=== PATIENT | female | born 1965 | race Caucasian/White ===

== ENCOUNTER 2021-02-15 12:52 | Observation (INO) | payer BC, OTHER ==
[~2021-02-15] VITALS: Ht 165.1 cm; Wt 101.2 kg
[2021-02-15 13:28] LABS: HEMOGLOBIN 14.8 gm/dl (12.3-15.3); RED BLOOD COUNT 4.91 M/UL (4.00-5.10); WHITE BLOOD COUNT 8.8 K/UL (4.5-11.0)
[2021-02-15 14:05] LABS: BUN/CREATININE RATIO 22 (0-10)
[2021-02-15] MEDS ORDERED: OZEMPIC1 MG/0.71 SC (17:08)
[2021-02-15] MEDS ORDERED: PRAVASTATIN SOD40 MG PO (17:09)
[2021-02-15] MEDS ORDERED: GLUCOPHAGE1000 MG PO (17:10)
[2021-02-15] MEDS ORDERED: MOBIC15 MG PO (17:10)
[2021-02-15] MEDS ORDERED: BENICAR HCT 401 EACH PO (17:10)
[2021-02-15] MEDS ORDERED: NORVASC5 MG PO (17:10)
[2021-02-15] MEDS ORDERED: CYMBALTA60 MG PO (17:11)
[2021-02-16 02:58] LABS: HEMOGLOBIN 13.1 gm/dl (12.3-15.3); RED BLOOD COUNT 4.47 M/UL (4.00-5.10); WHITE BLOOD COUNT 7.1 K/UL (4.5-11.0)
[2021-02-16 03:41] LABS: BUN/CREATININE RATIO 20 (0-10)
[2021-02-16] MEDS ORDERED: HYDRALAZINE HCL25 MG PO (13:34)
[2021-02-16] MEDS ORDERED: AMLODIPINE BESYL5 MG PO (13:34)
== END 2021-02-16 14:37 | disposition home or self-care (01) ==
LOC: ER1 12:52 → CDU 16:07 → MED SURG 4 18:51
PROVIDERS: Physician Assistant; Student in an Organized Health Care Education/Training Program; ADMIT Internal Medicine
DX: I16.0 Hypertensive urgency (principal); R51.9 Headache, unspecified; E11.9 Type 2 diabetes mellitus without complications; E78.5 Hyperlipidemia, unspecified; F41.9 Anxiety disorder, unspecified; F32.9 Major depressive disorder, single episode, unspecified; I10 Essential (primary) hypertension; R74.01 Elevation of levels of liver transaminase levels; Z90.49 Acquired absence of other specified parts of digestive tract; Z98.890 Other specified postprocedural states; Z79.84 Long term (current) use of oral hypoglycemic drugs; Z79.899 Other long term (current) drug therapy; Z20.822 Contact with and (suspected) exposure to COVID-19
CPT/HCPCS: ECHO; 36415; 70450; 71046; 78452; 80048; 80053; 82550; 82553; 82962; 83874; 84484; 85025; 93005; 93017; 93306; 96374; 99285; A9502; G0378; J1885; J2785; U0002